=== PATIENT | female | born 1950 | race Caucasian/White ===

== ENCOUNTER 2017-01-06 08:40 | Day surgery (SDC) | payer OTHER, MEDICARE ==
[2017-01-06] MEDS ORDERED: LIDOCAINE 1% 5 ML SDV ID PRN (09:20)
[2017-01-06] MEDS ORDERED: LR 1,000 ML IV ONE (09:20)
[2017-01-06] MEDS ORDERED: PROPOFOL/EMULSION 500 MG/50 ML BOTTLE IV ONE (11:26)
--- NOTE | 2017-01-06 12:33 | GPN ---
PREPROCEDURE DIAGNOSES: Chronic left lower quadrant abdominal pain, history of hematochezia, possib le hemorrhoids. POSTPROCEDURE DIAGNOSES: 1. Minimal antral gastritis. 2. Small internal hemorrhoids. PROCEDURES: Esophagogastroduodenoscopy with biopsy, colonoscopy. MEDICATIONS: Monitored anesthesia care. INDICATIONS: The patient is a 66-year-old female, followed by our clinic for irritable bowel syndro me, fibromyalgia, and chronic right lower quadrant abdominal pain, as well as recent possible sympto matic hemorrhoids with hematochezia. She has been referred for upper endoscopy and colonoscopy. He r last colonoscopy was in 2013, which was normal. The risks and the benefits of the procedure were discussed with the patient, and consent obtained. The risks include, but are not limited to, bleedi ng, perforation, missed lesions, sedation. The patient is ASA class 2. PROCEDURE: The end-viewing endoscope was inserted into the esophagus, into the stomach, down to the second portion of the duodenum. The esophagus appears normal. The Z-line is regular at 40 cm from the incisors. There is no evidence of varices, esophagitis, or Stanley. The stomach shows minimal antral erythema consistent with gastritis. Biopsies were taken with cold biopsy forceps to evaluat e for Helicobacter pylori. The duodenum and second portion were normal. Biopsies were taken for ev aluation of celiac disease with cold biopsy forceps. The patient was then repositioned and the pediatric colonoscope was advanced into the terminal ileum , which appeared normal. The ileocecal valve, cecum, appendiceal orifice, ascending colon, hepatic flexure, transverse colon, splenic flexure, descending colon, sigmoid colon, and rectum appeared nor mal. Retroflexed views in the rectum showed small grade 1 internal hemorrhoids. IMPRESSION.: 1. Minimal antral gastritis. 2. Small grade 1 internal hemorrhoids. RECOMMENDATION: 1. Discharge home with escort. 2. Advance diet as tolerated. 3. Continue current medications. 4. Repeat colonoscopy in 10 years for screening purposes. 5. Follow up in our GI clinic as previously scheduled for further discussion and management of her symptoms. Thank you for allowing me to participate in the care of your patient. Please do not hesitate to brianna l with questions. /[id number]/MODL
== END 2017-01-06 13:45 | disposition home or self-care (01) ==
LOC: FSGY 08:40
PROVIDERS: ATTEND Internal Medicine Gastroenterology
PROC: 0DB98ZX Excision of Duodenum, Via Natural or Artificial Opening Endoscopic, Diagnostic (ICD-10-PCS; principal; 2017-01-06 10:45)
PROC: 0DB78ZX Excision of Stomach, Pylorus, Via Natural or Artificial Opening Endoscopic, Diagnostic (ICD-10-PCS; principal; 2017-01-06 10:45)
DX: K29.50 Unspecified chronic gastritis without bleeding (principal); K64.0 First degree hemorrhoids
CPT/HCPCS: 43239; G0121; J2704

== ENCOUNTER → 2017-02-09 | Outpatient (CLI) | payer OTHER, MEDICARE | LOC: BMCIMAGING 11:17 | PROVIDERS: ATTEND Internal Medicine | DX: M54.9 Dorsalgia, unspecified (principal); R07.81 Pleurodynia ==

== ENCOUNTER → 2017-04-15 | Outpatient (CLI) | payer OTHER, MEDICARE | LOC: FIMAGING 10:17 | DX: Z12.31 Encounter for screening mammogram for malignant neoplasm of breast (principal); Z80.3 Family history of malignant neoplasm of breast | CPT/HCPCS: G0202 ==

== ENCOUNTER 2017-06-09 14:00 | Emergency (ER) | payer OTHER, MEDICARE ==
[2017-06-09 14:45] VITALS: RESP 16; TEMP 98.2
--- NOTE | 2017-06-09 14:51 | CPEKG ---
Heart Rate: 58 RR Interval: 1034 P-R Interval: 160 QRSD Interval: 80 QT Interval: 464 QTC Interval: 456 P [place]: 43 QRS [place]: 34 T Wave [place]: 55 EKG Severity - NORMAL ECG - EKG Impression: SINUS RHYTHM Electronically Signed By: Riaz Lake 09-Jun-2017 20:59:28
[2017-06-09] MEDS ORDERED: fentaNYL 100 MCG/2 ML INJ IVP ONE ×2 (15:26→16:00)
[2017-06-09] MEDS ORDERED: fentaNYL 100 MCG/2 ML INJ ONE (15:28)
--- NOTE | 2017-06-09 15:31 | EDPHY ---
H & P Stated Complaint: BIBA for s/p syncope & fall, neck pain Time Seen by Provider: 06/09/17 15:28 - Personal History Current Tetanus/Diphtheria Vaccine: Yes Current Tetanus Diphtheria and Acellular Pertussis (TDAP): Yes Tetanus Vaccine Date: 2013 - Medical/Surgical History Hx Asthma: Yes Hx Chronic Respiratory Disease: No Hx Diabetes: No Hx Cardiac Disease: No Hx Renal Disease: No Hx Cirrhosis: No Hx Alcoholism: No Hx HIV/AIDS: No Hx Splenectomy or Spleen Trauma: No Other PMH: PMH- HYPOTHYROID, LYME DISEASE, TIA, DVT, carotid artery stenosis w/ repair 09/22. PSH- ortho surgeries, appy, greg, thyroidectomy r/t CA, partial hysterectomy - Social History Smoking Status: Never smoked Constitutional: Initial Vital Signs Temperature (C) 36.8 C 06/09/17 14:05 Heart Rate 55 L 06/09/17 14:05 Respiratory Rate 16 06/09/17 14:05 Blood Pressure 150/78 H 06/09/17 14:05 O2 Sat (%) 100 06/09/17 14:05 O2 Delivery Mode Nasal Cannula O2 (L/minute) 2 Allergies/Adverse Reactions: HAYFEVER Allergy (Mild, Uncoded 12/30/16 11:57) SNEEZE,ITCHY EYES Home Medications: Medication Instructions Recorded Levothyroxine 06/09/17 Midodrine HCl 06/09/17 Medical Decision Making - Diagnostics Imaging Results: Imaging Impressions Cervical Spine CT 06/09/17 15:27 Impression: 1. No acute fracture. 2. 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 3. Moderate disk height loss and degenerative disk disease at C6-C7. 4. Early facet arthropathy at C7-T1. 5. No significant canal or foraminal stenosis evident. 6. Arthritis and ligamentous calcification at the atlantoaxial junction, as well. Findings and recommendations discussed with Riaz Lake M.D., at 1600 hours , on June 09, 2017. Final report concurs with initial preliminary interpretation. Lumbar Spine CT 06/09/17 15:27 Impression: 1. Nothing acute. 2. Postoperative findings from fusion at L3-L5. 3. Moderate degenerative disk disease at L1-L2. Findings and recommendations discussed with Riaz Lake MD at 1600 hour, 06/09/2017. Final report concurs with initial preliminary interpretation. Imaging: Discussed imaging studies w/ call circuit worker Radiologist ED Course/Re-evaluation: CHIEF COMPLAINT: HISTORY OF PRESENT ILLNESS: The patient is a 67 y/o female who complains of [id number] neck pain secondary to a syncopal episode this afternoon. She has a history of an autonomic nervous system disorder that causes recurrent syncopes and prior falls. She is currently using pain medications and muscle relaxants following a recent lumbar fusion surgery. She states she had a bowel movement right before she passed out. Denies weakness, paresthesia, dyspnea, chest pains. No anticoagulants. REVIEW OF SYSTEMS: A 10 point review of systems was performed and is negative with the exception of the elements mentioned in the history of present illness. PHYSICAL EXAM: HR, BP, O2 Sat, RR. Temp noted General Appearance: Alert, well hydrated, appropriate, and non-toxic appearing. Head: Atraumatic without scalp tenderness or obvious injury Eyes: Pupils equal, round, reactive to light and accommodation, EOMI, no trauma , no injection. Ears: Clear bilaterally, no perforation, normal landmarks Nose: Atraumatic, no rhinorrhea, clear. Throat: Mucus membranes moist. Neck: Midline cervical spine tenderness. C-collar in place. Respiratory: No retractions, no distress, no wheezes, and no accessory muscle use. Lungs are clear to auscultation bilaterally. Cardiovascular: Regular rate and rhythm, no murmurs, rubs, or gallops. Good capillary refill all extremities. Gastrointestinal: Abdomen is soft, non-tender, non-distended, no masses, no rebound, no guarding, no peritoneal signs. Musculoskeletal: Normal active ROM of all extremities, atraumatic. Neurological: Alert, appropriate, and interactive. Non-focal neuro. Skin: No rashes, good turgor, no nodules on palpation. PAST MEDICAL HISTORY: TIA, DVT, hypothyroid, carotid artery stenosis PAST SURGICAL HISTORY: Lumbar fusion, carotid endarterectomy SOCIAL HISTORY: Retired, lives in [place] Prior medical records viewed including discharge note on 10/03/14 for TIA. DIAGNOSTICS/PROCEDURES/CRITICAL CARE TIME: CT cervical spine and lumbar spine: Negative per Dr. Mcintosh, radiologist EKG: The 12 lead EKG was interpreted by myself. Sinus rhythm. See hard copy and/ or "tracemaster" electronic copy for interpretation DIFFERENTIAL DIAGNOSIS: The differential diagnosis for the patient's neck and back pain included but was not limited to musculoskeletal pain, epidural abscess , herniated disk, spinal fracture, and intra-abdominal causes including urinary system. MEDICAL DECISION MAKING: The patient is a 67 y/o female who presents with a neck pain secondary to a syncopal episode this afternoon. She has an extensive syncopal history and Dr. Blevins, vault manager, has diagnosed her with an autonomic vasovagal disorder. She had a lumbar fusion surgery several days ago, and was concerned about injuring her back and neck following her syncopal episode. Plan for cervical and lumbar spine CT to rule out fractures or reinjury , EKG, and pain management. 50mcg IV Fentanyl administered. 1610: C-spine cleared by imaging, C-collar removed by myself. Patient remains neurovascularly intact. Reassessed patient and have discussed imaging findings. I did not prescribe any pain medications or muscle relaxers since she still has these prescriptions from her recent lumbar fusion surgery. She is comfortable with this plan. Return precautions were given. - Data Points Medications Given: Discontinued Medications Hydrocodone Bitart/Acetaminophen ([place] 5/325) 2 tab PO EDNOW ONE Stop: 06/09/17 16:48 Last Admin: 06/09/17 16:50 Dose: 2 tab Fentanyl (Sublimaze) 50 mcg IVP EDNOW ONE Stop: 06/09/17 15:27 Last Admin: 06/09/17 15:33 Dose: 50 mcg Fentanyl (Sublimaze) 50 mcg IVP EDNOW ONE Stop: 06/09/17 16:01 Last Admin: 06/09/17 16:04 Dose: 50 mcg Departure - Departure Disposition: Home, Routine, Self-Care Clinical Impression: Vaso vagal episode Cervical strain Qualifiers: Encounter type: initial encounter Qualified Code(s): S16.1XXA - Strain of muscle, fascia and tendon at neck level, initial encounter Condition: Good Instructions: Cervical Strain (ED), Syncope (ED) Additional Instructions: 1. Apply ice to sore areas. 2. Limit combining narcotic pain medication and muscle relaxers, as this can contribute to vasovagal episodes. 3. Follow up with your specialists as needed. 4. Return to the ED for severe pain, shortness of pain, or worsening of condition. Referrals: Patient,NotPresent [Unknown] - As per Instructions Emily Orellana MD [Primary Care Provider] - As per Instructions Report Scribed for: Riaz Lake Report Scribed by: Veronica Eckert Date of Report: 06/09/17 Time of Report: 15:29
[2017-06-09] MEDS ORDERED: HYDROCODONE/APAP 5/325 TAB PO ONE (16:47)
[2017-06-09 17:38] VITALS: BP 155/82; PULSE 63; O2SAT 94
== END 2017-06-09 17:37 | disposition home or self-care (01) ==
LOC: EDUNIT#
DX: S16.1XXA Strain of muscle, fascia and tendon at neck level, initial encounter (principal); R55 Syncope and collapse; J45.909 Unspecified asthma, uncomplicated; W19.XXXA Unspecified fall, initial encounter
CPT/HCPCS: 72125; 72131; 93005; 96374; 96376; 99285; J3010

== ENCOUNTER → 2018-01-11 | Outpatient (CLI) | payer OTHER, MEDICARE ==
[~2018-01-11] MED LIST: IOPAMIDOL (ISOVUE 370) 100 ML BTL IV ONE
== END ==
LOC: FIMAGING 14:35
PROVIDERS: ATTEND Internal Medicine Cardiovascular Disease
DX: I77.1 Stricture of artery (principal); E78.00 Pure hypercholesterolemia, unspecified; I95.9 Hypotension, unspecified; M50.322 Other cervical disc degeneration at C5-C6 level
CPT/HCPCS: 70498; Q9967

== ENCOUNTER → 2018-05-06 | Outpatient (CLI) | payer OTHER, MEDICARE | LOC: BMCIMAGING 08:35 | PROVIDERS: ATTEND Internal Medicine | DX: Z12.31 Encounter for screening mammogram for malignant neoplasm of breast (principal) ==

== ENCOUNTER 2018-08-27 16:24 | Emergency (ER) | payer OTHER, MEDICARE ==
--- NOTE | 2018-08-27 17:20 | CPEKG ---
Test Reason : OPEN Blood Pressure : / mmHG Vent. Rate : 068 BPM Atrial Rate : 068 BPM P-R Int : 165 ms QRS Dur : 082 ms QT Int : 405 ms P-R-T Axes : 047 026 046 degrees QTc Int : 431 ms Sinus rhythm Borderline T abnormalities, anterior leads Confirmed by Simon Mena ([id number]) on 08/27/2018 5:20:04 PM Referred By: Confirmed By:Simon Mena
--- NOTE | 2018-08-27 17:25 | EDPHY ---
H & P Stated Complaint: Chest pressure Time Seen by Provider: 08/27/18 17:17 HPI/ROS: CHIEF COMPLAINT: Chest pain HISTORY OF PRESENT ILLNESS: The patient is a 68-year-old female who comes to the emergency department with chest pain and left arm tingling. She reports that last night she developed the chest pain and some tingling in her arm mostly in the last 3 fingers. The chest pain resolved but she continues to have left arm heaviness and tingling. She was worried about subclavian DVT because she had 1 in the other arm several years ago. She also has a history of TIA and severe cart artery stenosis post carotid endarterectomy. Today she saw Dr. Solorio from Cardiology who felt like this is likely a radiculopathy but recommended she come to the ER for rule out DVT. The patient decided to disregard this advice and went back home to [place]. The cardiology office called her at home and told her she needed to come back to the emergency department. She now presents for evaluation. She denies shortness of breath. She denies recent fevers or illness. No cough. No abdominal pain. No nausea vomiting or diaphoresis. She artery took aspirin today. Severity: Moderate Modifying factors: Improving spontaneously REVIEW OF SYSTEMS: Constitutional: denies: chills, fever, recent illness, recent injury EENTM: denies: blurred vision, double vision, nose congestion Respiratory: denies: cough, shortness of breath Cardiac: See HPI denies: irregular heart rate, lightheadedness, palpitations Gastrointestinal/Abdominal: denies: abdominal pain, diarrhea, nausea, vomiting, blood streaked stools Genitourinary: denies: dysuria, frequency, hematuria, pain Musculoskeletal: denies: joint pain, muscle pain Skin: denies: lesions, rash, jaundice, bruising Neurological: See HPI denies: headache, weakness Hematologic/Lymphatic: denies: blood clots, easy bleeding, easy bruising Immunologic/allergic: denies: HIV/AIDS, transplant 10 systems reviewed and negative except as noted EXAM: GENERAL: Well-appearing, well-nourished and in no acute distress. HEAD: Atraumatic, normocephalic. EYES: Pupils equal round and reactive to light, extraocular movements intact, sclera anicteric, conjunctiva are normal. ENT: TMs normal, nares patent, oropharynx clear without exudates. Moist mucous membranes. NECK: Normal range of motion, supple without lymphadenopathy or JVD. LUNGS: Breath sounds clear to auscultation bilaterally and equal. No wheezes rales or rhonchi. HEART: Regular rate and rhythm without murmurs, rubs or gallops. ABDOMEN: Soft, nontender, normoactive bowel sounds. No guarding, no rebound. No masses appreciated. BACK: No CVA tenderness, no spinal tenderness, step-offs or deformities EXTREMITIES: Normal range of motion, no pitting or edema. No clubbing or cyanosis. NEUROLOGICAL: Cranial nerves II through XII grossly intact. Normal speech, normal gait. 5/5 strength, normal movement in all extremities, normal sensation , normal reflexes PSYCH: Normal mood, normal affect. SKIN: Warm, dry, normal turgor, no visible rashes or lesions. Source: Patient Exam Limitations: No limitations - Personal History Current Tetanus/Diphtheria Vaccine: Yes Tetanus Vaccine Date: 2013 - Medical/Surgical History Hx Asthma: Yes Hx Chronic Respiratory Disease: No Hx Diabetes: No Hx Cardiac Disease: No Hx Renal Disease: No Hx Cirrhosis: No Hx Alcoholism: No Hx HIV/AIDS: No Hx Splenectomy or Spleen Trauma: No Other PMH: PMH- HYPOTHYROID, chronic LYME DISEASE, TIA, right upper extremity DVT,. PSH- ortho surgeries, appy, greg, thyroidectomy r/t CA, partial hysterectomy, carotid endarterectomy - Family History Significant Family History: No pertinent family hx - Social History Smoking Status: Never smoked Alcohol Use: Sober Drug Use: None Constitutional: Initial Vital Signs Temperature (C) 36.8 C 08/27/18 16:31 Heart Rate 73 08/27/18 16:31 Respiratory Rate 18 08/27/18 16:31 Blood Pressure 162/98 H 08/27/18 16:31 O2 Sat (%) 97 08/27/18 16:31 O2 Delivery Mode Room Air Allergies/Adverse Reactions: HAYFEVER Allergy (Mild, Uncoded 08/27/18 16:34) SNEEZE,ITCHY EYES Home Medications: Medication Instructions Recorded Levothyroxine 06/09/17 Midodrine HCl 06/09/17 Crestor 08/27/18 Medical Decision Making - Diagnostics EKG Interpretation: An EKG obtained and was read and documented in trace view. Please see trace view for full reading and report. Sinus rhythm, T-wave abnormalities consistent with previous EKGs. Imaging Results: Imaging Impressions Chest X-Ray 08/27/18 17:24 Impression: Clear lungs. No pneumothorax or acute process. Imaging: Discussed imaging studies w/ train caller Radiologist ED Course/Re-evaluation: We discussed the patient's lab work and imaging which is reassuring. D-dimer and troponin are negative. Her symptoms would present since yesterday evening so I would expect the troponin to be positive. We discussed risks and benefits and engaged in joint decision making. The patient is eager to go home and declines further treatment or repeat testing. We discussed indications for returning. Differential Diagnosis: Partial list of the Differential diagnosis considered include but were not limited to; acute coronary disease, DVT, radiculopathy, muscle strain and although unlikely based on the history and physical exam, I also considered dissection, pneumonia, pneumothorax, trauma. - Data Points Laboratory Results: Laboratory Results 08/27/18 17:23 08/27/18 17:23 08/27/18 08/27/18 08/27/18 18:15 17:23 17:23 WBC RBC Hgb Hct MCV MCH MCHC RDW Plt Count MPV Neut % (Auto) Lymph % (Auto) [place] % (Auto) Eos % (Auto) Baso % (Auto) Nucleat RBC Rel Count Absolute Neuts (auto) Absolute Lymphs (auto) Absolute Monos (auto) Absolute Eos (auto) Absolute Basos (auto) Absolute Nucleated RBC Immature Gran % Immature Gran # D-Dimer 0.45 ug/mLFEU ug/mLFEU (0.00-0.50) Sodium Potassium Chloride Carbon Dioxide Anion Gap BUN Creatinine Estimated GFR Glucose Calcium POC Troponin I 0.01 ng/mL ng/mL (0.00-0.08) Troponin I < 0.012 ng/mL ng/mL (0.000-0.034) Specimen Hemolysis 08/27/18 08/27/18 17:23 17:23 WBC 6.29 10^3/uL 10^3/uL (3.80-9.50) RBC 4.45 10^6/uL 10^6/uL (4.18-5.33) Hgb 12.9 g/dL g/dL (12.6-16.3) Hct 38.4 % % (38.0-47.0) MCV 86.3 fL fL (81.5-99.8) MCH 29.0 pg pg (27.9-34.1) MCHC 33.6 g/dL g/dL (32.4-36.7) RDW 13.4 % % (11.5-15.2) Plt Count 304 10^3/uL 10^3/uL (150-400) MPV 9.9 fL fL (8.7-11.7) Neut % (Auto) 57.5 % % (39.3-74.2) Lymph % (Auto) 25.8 % % (15.0-45.0) [place] % (Auto) 7.6 % % (4.5-13.0) Eos % (Auto) 8.1 % H % (0.6-7.6) Baso % (Auto) 0.8 % % (0.3-1.7) Nucleat RBC Rel Count 0.0 % % (0.0-0.2) Absolute Neuts (auto) 3.62 10^3/uL 10^3/uL (1.70-6.50) Absolute Lymphs (auto) 1.62 10^3/uL 10^3/uL (1.00-3.00) Absolute Monos (auto) 0.48 10^3/uL 10^3/uL (0.30-0.80) Absolute Eos (auto) 0.51 10^3/uL H 10^3/uL (0.03-0.40) Absolute Basos (auto) 0.05 10^3/uL 10^3/uL (0.02-0.10) Absolute Nucleated RBC 0.00 10^3/uL 10^3/uL (0-0.01) Immature Gran % 0.2 % % (0.0-1.1) Immature Gran # 0.01 10^3/uL 10^3/uL (0.00-0.10) D-Dimer Sodium 135 mEq/L mEq/L (135-145) Potassium 5.0 mEq/L mEq/L (3.3-5.0) Chloride 101 mEq/L mEq/L (97-110) Carbon Dioxide 24 mEq/l mEq/l (22-31) Anion Gap 10 mEq/L mEq/L (6-14) BUN 14 mg/dL mg/dL (7-23) Creatinine 0.9 mg/dL mg/dL (0.6-1.0) Estimated GFR > 60 Glucose 94 mg/dL mg/dL (70-100) Calcium 9.4 mg/dL mg/dL (8.5-10.4) POC Troponin I Troponin I Specimen Hemolysis 177 Point of Care Test Results: Chemistry 08/27/18 18:15 POC Troponin I 0.01 ng/mL ng/mL (0.00-0.08) Departure - Departure Disposition: Home, Routine, Self-Care Clinical Impression: Chest pain Qualifiers: Chest pain type: unspecified Qualified Code(s): R07.9 - Chest pain, unspecified Condition: Good Instructions: Chest Pain (ED) Referrals: Emily Orellana MD [Primary Care Provider] - 1-2 days without fail
[2018-08-27 17:37] LABS: PLATELET COUNT 304 10^3/uL (150-400)
[2018-08-27 19:07] VITALS: BP 118/61
== END 2018-08-27 19:06 | disposition home or self-care (01) ==
DX: R07.9 Chest pain, unspecified (principal); E03.9 Hypothyroidism, unspecified; A69.20 Lyme disease, unspecified; Z86.718 Personal history of other venous thrombosis and embolism; Z86.73 Personal history of transient ischemic attack (TIA), and cerebral infarction without residual deficits
CPT/HCPCS: 84484-PO

== ENCOUNTER 2018-12-15 09:48 | Inpatient (IN) | payer OTHER, MEDICARE ==
[2018-12-15] MEDS ORDERED: NS 1,000 ML IV ONE (09:56)
--- NOTE | 2018-12-15 10:00 | EDPHY ---
Addendum entered and electronically signed by Michelle Juares PAC 12/15/18 12:08: Notified by RN that Influenza A positive. Gave Tamiflu. Started NS at 100 cc/ hr. Original Note: H & P Source: Patient, RN/MD, EMS, Old records Exam Limitations: No limitations - Personal History Tetanus Vaccine Date: 2013 - Medical/Surgical History Hx Asthma: Yes Hx Chronic Respiratory Disease: No Hx Diabetes: No Hx Cardiac Disease: No Hx Renal Disease: No Hx Cirrhosis: No Hx Alcoholism: No Hx HIV/AIDS: No Hx Splenectomy or Spleen Trauma: No Other PMH: PMH- HYPOTHYROID, chronic LYME DISEASE, TIA, right upper extremity DVT,. PSH- ortho surgeries, appy, greg, thyroidectomy r/t CA, partial hysterectomy, carotid endarterectomy - Social History Smoking Status: Never smoked Time Seen by Provider: 12/15/18 09:57 HPI/ROS: HPI: This is a 68-year-old female who presents with Chief Complaint: Cough, chest tightness Location: Chest Quality: Cough,tightness Duration: Since approximately 6 days Signs and Symptoms: no shortness of breath at rest, no shortness of breath on exertion, + cough, + chest pain-nonradiating, no palpitations, no lower extremity edema, + wheezing, no orthopnea, no paroxysmal nocturnal dyspnea, no fever, no injury/trauma, no hemoptysis, no carpal pedal spasms Timing: Gradually worsening Severity: Moderate to severe Context: Patient arrives via EMS from [place] with complaints of gradual onset of productive cough accompanied by wheezing and chest tightness and left arm heaviness since last approximately 6 days ago. Patient reports that her symptoms have continued to gradually worsen and "not improved." Patient reports that she is a nonsmoker but takes albuterol inhaler and " another type of inhaler."She reports that she "had a cold and thought it would get better but it just isn't." Reports a cardiac catheterization approximately 10 years ago that was negative per patient. Patient has a history of low blood pressure and takes midodrine as needed. Chest heaviness and tightness increased with coughing and taking a deep breath. Recent long distance travel. Patient did not take any of her medications this morning as she complains of nausea. She denies fever, vomiting, diarrhea, abdominal pain, shortness of breath, lower extremity edema, calf pain. EMS 12 lead noted flipped T-waves in V2 and V3. Did not receive influenza vaccine this year. Modifying Factors: EMS gave albuterol neb with improved aeration and resolution of wheezing Comment: ROS: A comprehensive 10 system review of systems is otherwise negative aside from elements mentioned in the history of present illness. MEDICAL/SURGICAL/SOCIAL HISTORY: Medical history: HYPOTHYROID, chronic LYME DISEASE, TIA, right upper extremity DVT, PSH- ortho surgeries, appy, greg, thyroidectomy r/t CA, partial hysterectomy, carotid endarterectomy Social history: Retired. Never smoked. CONSTITUTIONAL: Nontoxic-appearing elderly white female who is very talkative, able to speak in complete sentences without any difficulty, awake and alert, no obvious distress HEENT: Atraumatic and normocephalic, PERRL, EOMI. Nares patent; no rhinorrhea; no nasal mucosal edema. Tympanic membranes clear. Oropharynx clear, no exudate and moist pink mucosa. Airway patent. No lymphadenopathy. No meningismus. Cardiovascular: Normal S1/S2, regular rate, regular rhythm, without murmur rub or gallop. PULMONARY/CHEST: Symmetrical and nontender. Faint inspiratory wheezing noted bibasilarly and expiratory wheezing noted throughout. Good air movement. No accessory muscle usage. Able to take a deep breath but induces a dry hacking cough. ABDOMEN: Soft, nondistended, nontender, no rebound, no guarding, no peritoneal signs, no masses or organomegaly. No CVAT. EXTREMITIES: 2/2 pulses, strength 5/5, no deformities, no clubbing, no cyanosis or edema. NEUROLOGICAL: no focal neuro deficits. GCS 15. SKIN: Warm and dry, pallor, no erythema. no rash. Good capillary refill. (Mor,Terra) Constitutional: Initial Vital Signs Temperature (C) 36.6 C 12/15/18 09:48 Heart Rate 72 12/15/18 09:48 Respiratory Rate 16 12/15/18 09:48 Blood Pressure 178/94 H 12/15/18 09:48 O2 Sat (%) 95 12/15/18 09:48 O2 Delivery Mode Room Air Allergies/Adverse Reactions: HAYFEVER Allergy (Mild, Uncoded 08/27/18 16:34) SNEEZE,ITCHY EYES Home Medications: Medication Instructions Recorded Levothyroxine [Synthroid 88 mcg 88 mcg PO DAILY06 06/09/17 (*)] Midodrine HCl 5 mg PO DAILY PRN 06/09/17 Rosuvastatin Calcium [Crestor 20mg 20 mg PO DAILY 08/27/18 (*)] Aspirin [Aspirin 81mg (*)] 81 mg PO DAILY 12/15/18 Medical Decision Making - Diagnostics Imaging Results: Imaging Impressions Chest X-Ray 12/15/18 09:56 Impression: No acute findings in the chest. ED Course/Re-evaluation: Vital signs reviewed and show elevated blood pressure upon arrival. IV access, laboratory studies, EKG, respiratory pathogen swab, chest x-ray ordered to evaluate for pneumonia Patient given L normal saline 1015: Notified by [facility] that TROP=0.00 1030: Notified by [facility] that critical lab value of a sodium 119. Urinalysis ordered Labs reviewed and show potassium 3.9, creatinine 0.7 1040: EKG my read/with attending shows normal sinus rhythm with a rate of 59 beats per minute with a QT interval of 491, inverted T-waves V2 V3 noted. No acute EKG ischemic changes. Chest x-ray my read via PAC shows no vipul opacity, effusion. ED decision to consult for admission for hyponatremia. Spoke with [facility] who kindly agrees to admit patient to step-down under Dr. Rich. This patient was seen under the supervision of my secondary supervising physician. I evaluated care for this patient attending. Discussed this patient with Dr. Sanabria. (Michelle Juares) Differential Diagnosis: Chest pain including but not limited to myocardial ischemia, pulmonary embolus, chest wall pain, pleural inflammation and pulmonary infectious causes. (Michelle Juares) Other Provider: PHYSICIAN DOCUMENTATION: The patient was evaluated and managed by the Physician Filenet Developer and myself. I have reviewed the chart and agree with the findings and plan of care as documented. In addition, I examined the patient myself at 1140. History confirmed as recent 3 day URI with decreased oral intake. Physical findings as follows: Dry mucous membranes. Likely hypovolemic hyponatremia, plan for admission with slow IV normal saline hydration. Discussed with family who is present in the room. I am the secondary supervising physician. (Memo Sanabria) - Data Points Laboratory Results: Laboratory Results 12/15/18 09:49 12/15/18 09:49 12/15/18 12/15/18 12/15/18 09:59 09:49 09:49 WBC 2.71 10^3/uL L 10^3/uL (3.80-9.50) RBC 4.72 10^6/uL 10^6/uL (4.18-5.33) Hgb 13.7 g/dL g/dL (12.6-16.3) Hct 39.0 % % (38.0-47.0) MCV 82.6 fL fL (81.5-99.8) MCH 29.0 pg pg (27.9-34.1) MCHC 35.1 g/dL g/dL (32.4-36.7) RDW 11.5 % % (11.5-15.2) Plt Count 309 10^3/uL 10^3/uL (150-400) MPV 9.7 fL fL (8.7-11.7) Neut % (Auto) 65.3 % % (39.3-74.2) Lymph % (Auto) 22.5 % % (15.0-45.0) Geary % (Auto) 11.8 % % (4.5-13.0) Eos % (Auto) 0.0 % L % (0.6-7.6) Baso % (Auto) 0.0 % L % (0.3-1.7) Nucleat RBC Rel Count 0.0 % % (0.0-0.2) Absolute Neuts (auto) 1.77 10^3/uL 10^3/uL (1.70-6.50) Absolute Lymphs (auto) 0.61 10^3/uL L 10^3/uL (1.00-3.00) Absolute Monos (auto) 0.32 10^3/uL 10^3/uL (0.30-0.80) Absolute Eos (auto) 0.00 10^3/uL L 10^3/uL (0.03-0.40) Absolute Basos (auto) 0.00 10^3/uL L 10^3/uL (0.02-0.10) Absolute Nucleated RBC 0.00 10^3/uL 10^3/uL (0-0.01) Immature Gran % 0.4 % % (0.0-1.1) Immature Gran # 0.01 10^3/uL 10^3/uL (0.00-0.10) Sodium 119 mEq/L L* mEq/L (135-145) Potassium 3.9 mEq/L mEq/L (3.5-5.2) Chloride 82 mEq/L L mEq/L (97-110) Carbon Dioxide 23 mEq/l mEq/l (22-31) Anion Gap 14 mEq/L mEq/L (6-14) BUN 10 mg/dL mg/dL (7-23) Creatinine 0.7 mg/dL mg/dL (0.6-1.0) Estimated GFR > 60 Glucose 116 mg/dL H mg/dL (70-100) Calcium 8.7 mg/dL mg/dL (8.5-10.4) Total Bilirubin 0.9 mg/dL mg/dL (0.1-1.4) Conjugated Bilirubin 0.4 mg/dL mg/dL (0.0-0.5) Unconjugated Bilirubin 0.5 mg/dL mg/dL (0.0-1.1) AST 38 IU/L IU/L (14-46) ALT 32 IU/L IU/L (9-52) Alkaline Phosphatase 77 IU/L IU/L (38-126) POC Troponin I 0.00 ng/mL ng/mL (0.00-0.08) Total Protein 7.2 g/dL g/dL (6.3-8.2) Albumin 4.6 g/dL g/dL (3.5-5.0) Microbiology Results: MICROBIOLOGY 12/15/18 10:15 Nasal, Sinus - Swab Respiratory Panel (PCR) - Final Influenza Virus Type A H3 Medications Given: Sodium Chloride (Ns) 1,000 mls @ 100 mls/hr IV CONT AJ Stop: 06/13/19 12:29 Last Admin: 12/15/18 12:21 Dose: 1,000 mls Oseltamivir Phosphate (Tamiflu) 75 mg PO ONCE ONE Stop: 12/16/18 12:08 Last Admin: 12/15/18 12:19 Dose: 75 mg Discontinued Medications Sodium Chloride (Ns) 1,000 mls @ 0 mls/hr IV ONCE ONE; Wide Open PRN Reason: Protocol Stop: 12/15/18 09:57 Last Admin: 12/15/18 10:15 Dose: 1,000 mls Point of Care Test Results: Chemistry 12/15/18 09:59 POC Troponin I 0.00 ng/mL ng/mL (0.00-0.08) Departure - Departure Disposition: [facility] Acute Clinical Impression: Hyponatremia, Influenza Condition: Fair
[2018-12-15 10:04] LABS: PLATELET COUNT 309 10^3/uL (150-400)
--- NOTE | 2018-12-15 10:27 | CPEKG ---
Test Reason : OPEN Blood Pressure : / mmHG Vent. Rate : 059 BPM Atrial Rate : 060 BPM P-R Int : 191 ms QRS Dur : 088 ms QT Int : 494 ms P-R-T Axes : 055 017 052 degrees QTc Int : 490 ms Sinus rhythm Borderline prolonged QT interval Confirmed by Denia Patel ([id number]) on 12/15/2018 10:27:17 AM Referred By: DENIA PATEL Confirmed By:Denia Patel
[2018-12-15] MEDS ORDERED: OSELTAMIVIR PHOSPHATE 75 MG CAP ONE (12:10)
[2018-12-15] MEDS: OSELTAMIVIR PHOSPHATE 75 MG CAP PO ONE ×2 (12:17→12:19)
[2018-12-15] MEDS ORDERED: NS 1,000 ML IV SCH ×2 (12:30→14:00)
--- NOTE | 2018-12-15 12:35 | PDGENHP ---
History and Physical History and Physical: CC: Headaches confusion and weakness generalized HISTORY: This patient has had several days of headaches nausea vomiting diarrhea weakness. She is not sure she was having fevers or not. She started to feel off mentally and her sister noticed that she was confused on the telephone. She is brought into the hospital by ambulance today for ER evaluation. She denies shortness of breath, think she has been coughing, no chest pain, no abdominal pain, no bleeding. No urinary symptoms. No rash or joint pains ROS: A comprehensive 10 system review revealed no other significant findings PAST MEDICAL HISTORY: "Chronic Lyme disease" Hypothyroidism TIA - carotid endarterectomy Right upper extremity DVT Fibromyalgia Hysterectomy Thyroid cancer status post thyroidectomy Cholecystectomy Appendectomy FAMILY MEDICAL HISTORY: Her sister who is here with her is also recently had a cold-like illness though they have not been in contact during that time Her mother had a stroke SOCIAL HISTORY: No history of tobacco Lives in [place] No alcohol MEDICATIONS: The patients list has been reconciled by our clinical pharmacist in the EMR. I have reviewed the list and ordered appropriate medicines. 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: Sinus Examination: General: alert, oriented, gets mildly confused at times during conversation; looks very tired, no tremor Skin: warm, dry, good color, no rash HEENT: normal including absence of pharyngitis Neck: no mass or jvd Resps: relaxed Lungs: clear breath sounds Heart: regular, no murmur Abdomen: soft, nondistended, nontender, +BS, no mass Upper Extremities: normal Lower Extremities: no edema, warm No Bleeding or bruising Neurologic: normal speech/language, normal exhibit cleaner, no focal weakness IV site: looks normal LABORATORY DATA: Sodium 119 Otherwise unremarkable chemistry panel and CBC RADIOLOGY STUDIES: I reviewed image sirs from chest x-ray done in the ER which is a normal two view x-ray 12 LEAD EKG: I reviewed 12 lead EKG tracing from ER which is a normal EKG ASSESSMENT: * Hyponatremia, presumed hypovolemic due to influenza, urine sodium pending * Acute influenza a infection * Acute metabolic encephalopathy due to the above * History of TIA and carotid endarterectomy * Chronic hypothyroidism on replacement * History of DVT right arm PLANS: * Inpatient admission for management and monitoring of serum sodium with risk of osmotic demyelination * Initial treatment for sodium will be with saline replacement, but urine sodium will be checked and modifications made to treatment as indicated by that result and her clinical course * Tamiflu twice daily * fall risk precautions * Avoid sedating medicines, standard measures for encephalopathy * DVT prophylaxis I have reviewed the patient's case in detail with Dr. Memo Sanabria I have reviewed the patient's past medical records as part of this assessment, including previous hospital admission records
[2018-12-15] MEDS ORDERED: MIDODRINE HCL 5 MG TAB PO PRN (13:50)
[2018-12-15] MEDS ORDERED: guaiFENesin/CODEINE PHOS 10 ML UDCUP PO PRN (18:11)
[2018-12-15] MEDS: NS 1,000 ML IV SCH (18:12)
[2018-12-15] MEDS: OSELTAMIVIR PHOSPHATE 75 MG CAP PO SCH (18:13)
--- NOTE | 2018-12-15 18:48 | PDMN ---
Medical Necessity Medical necessity: MCG MGSIC Systemic or Infectious Condition: 68 yo w/ c/o several days of H/A, N/V, diarrhea and weakness w/ new onset confusion. Eval reveals + influenza w/ severe hyponatremia Na119. Inpatient admission for management and monitoring of serum sodium with risk of osmotic demyelination. Meets IP criteria for severe electrolyte imbalance and AMS. Hx Lyme's, TIA s/p CEA, DVT, fibromyalgia, thyroid ca s/p thyroidectomy
[2018-12-15] MEDS: MELATONIN 3 MG TAB PO SCH (20:34)
[2018-12-16] MEDS: LEVOTHYROXINE 88 MCG TAB PO SCH (06:02)
[2018-12-16] MEDS: ASPIRIN 81 MG CHEWABLE TAB PO SCH (08:31)
[2018-12-16] MEDS: ROSUVASTATIN CALCIUM 20 MG TAB PO SCH (08:31)
[2018-12-16] MEDS: OSELTAMIVIR PHOSPHATE 75 MG CAP PO SCH ×2 (08:31→17:58)
[2018-12-16] MEDS: ENOXAPARIN 40 MG/0.4 ML SYR SC SCH (08:31)
--- NOTE | 2018-12-16 09:05 | HOSPPROG ---
Hospitalist Progress Note Assessment/Plan: DIAGNOSES: * Hyponatremia, presumed hypovolemic due to influenza, urine sodium pending * Acute influenza a infection * Acute metabolic encephalopathy due to the above * History of TIA and carotid endarterectomy * Chronic hypothyroidism on replacement * History of DVT right arm PLANS: * Continue gentle saline IV hydration, liberal sodium diet with oral fluid restriction * Continue to follow sodium closely to ensure appropriate rate of rise * Continue measures for encephalopathy otherwise * PT and OT * Can transfer to [facility] at this time * Requires ongoing hospital care for acute confusion due to her encephalopathy as well as monitoring her sodium correction SUBJECTIVE: Feels much better today, much more comfortable, eating better Still has occasional visual hallucination Her sister notes she is still is fairly delusional in conversation at times though seems somewhat better oriented than yesterday OBJECTIVE Vitals reviewed: All stable without fever 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, my review: All sinus Exam: alert oriented at present during my conversation, no focal neurologic changes Looks more comfortable than yesterday skin warm dry color ok resps not labored lungs clear BSs heart regular abd soft nondistended nontender, bowel sounds present limbs warm, no edema iv site ok Laboratory data: Sodium is now 127 Microbiology: Influenza type A H3 Objective: Vital Signs Temp Pulse Resp BP Pulse Ox 36.9 C 56 L 17 136/69 H 96 12/16/18 07:47 12/16/18 07:47 12/16/18 07:47 12/16/18 07:47 12/16/18 07:47 Laboratory Results 12/16/18 05:50 12/15/18 12/16/18 12/17/18 06:59 06:59 06:59 Intake Total 2197 Output Total 700 Balance 1497 ICD10 Worksheet Patient Problems: Problems Problem Status Onset Hyponatremia Acute Influenza Acute TIA (transient ischemic attack) Acute
[2018-12-16] MEDS: POLYETHYLENE GLYCOL 3350 17 GM PKT PO SCH ×2 (09:12→20:49)
[2018-12-16] MEDS: ONDANSETRON 4 MG/2 ML VIAL IVP PRN ×2 (11:05→18:11)
[2018-12-16] MEDS: NS 1,000 ML IV SCH (13:10)
--- NOTE | 2018-12-16 13:56 | ASMTCASEMG ---
Living Arrangements What is your living Answers: Alone arrangement? Who do you live with? Type Of Residence What kind of residence do Answers: House you live in? Discharge Plan Comments Coordination Status Comments Notes: Patient is a 68yo single female who is being admitted for hyponatremia, acute influenza infection, metabolic encephalopathy, hx of TIA, and chronic hypothyroidism. Patient does live in [place] and lists a brother, Herbert who is local. PT has been ordered. D/C plan TBD. CM will follow. Date Signed: 12/16/2018 01:55 PM Electronically Signed By:Peyton Alvarado LCSW
[2018-12-16] MEDS: SODIUM CHLORIDE 1,000 MG TAB PO SCH (17:58)
[2018-12-16] MEDS ORDERED: hydrALAZINE 20 MG/ML VIAL IVP ONE (20:30)
[2018-12-16] MEDS: MELATONIN 3 MG TAB PO SCH (22:17)
[2018-12-17] MEDS ORDERED: hydrALAZINE 20 MG/ML VIAL IVP ONE (05:00)
[2018-12-17] MEDS: LEVOTHYROXINE 88 MCG TAB PO SCH (05:12)
[2018-12-17] MEDS ORDERED: FUROSEMIDE 20 MG/2 ML VIAL IVP ONE (08:59)
[2018-12-17] MEDS ORDERED: hydrALAZINE 20 MG/ML VIAL IVP PRN (09:01)
[2018-12-17] MEDS: ONDANSETRON 4 MG/2 ML VIAL IVP PRN (09:23)
[2018-12-17] MEDS: ASPIRIN 81 MG CHEWABLE TAB PO SCH (09:25)
[2018-12-17] MEDS: SODIUM CHLORIDE 1,000 MG TAB PO SCH ×2 (09:25→17:19)
--- NOTE | 2018-12-17 09:25 | HOSPPROG ---
Hospitalist Progress Note Assessment/Plan: * SIADH -urine sodium > 140 -likely due to pulmonary infection (influenza) -DC IV NS, give IV Lasix x 1 -fluid restrict + salt tabs -check TSH and cortisol levels in am * Chronic hypotension due to autonomic insufficiency -takes midodrine at home prn -BP very high here - symptomatic - s/p IV hydralazine (for SBP 188) -will not start oral BP med now due to h/o low BP -hopefully will settle down once sodium levels improve * Influenza -Tamiflu * Metabolic encephalopathy due to hyponatremia -improved * h/o TIA s/p carotid endarterectomy -ASA/statin * Fibromyalgia/Chronic Lyme disease -sees customer service representative teacher as outpatient * Thyroid Ca s/p thyroidectomy -check TSH am Subjective: Feels better, very stressed about recommendation for fluid restriction because she was previously told to push PO fluid due to low BP history. BP will fall to SBP 60s freqently with dizziness. Previous outpatient w/u for [facility] was negative Objective: Vital Signs Temp Pulse Resp BP Pulse Ox 36.3 C 65 16 146/72 H 96 12/17/18 07:27 12/17/18 07:27 12/17/18 07:27 12/17/18 07:27 12/17/18 07:27 Laboratory Results 12/17/18 05:07 12/16/18 12/17/18 12/18/18 05:59 05:59 05:59 Intake Total 2197 1360 Output Total 700 600 Balance 1497 760 - Time Spent With Patient Time Spent with Patient: greater than 35 minutes Time Spent with Patient: Greater than 35 minutes spent on this patients care, greater than 50% of time spent counseling, educating, and coordinating care regarding the above mentioned plan. - Physical Exam Constitutional: no apparent distress, appears nourished, not in pain Cardiovascular: regular rate and rhythym, no murmur, rub, or gallop Respiratory: no respiratory distress, no rales or rhonchi, clear to auscultation Gastrointestinal: normoactive bowel sounds, soft, non-tender abdomen, no palpable masses Skin: no rashes or abrasions, no fluctuance, no induration Neurologic: AAOx3, sensation intact bilaterally Psychiatric: interacting appropriately, not anxious, not encephalopathic, thought process linear ICD10 Worksheet Patient Problems: Problems Problem Status Onset TIA (transient ischemic attack) Acute Hyponatremia Acute Influenza Acute
[2018-12-17] MEDS: OSELTAMIVIR PHOSPHATE 75 MG CAP PO SCH ×2 (09:26→17:19)
[2018-12-17] MEDS: ROSUVASTATIN CALCIUM 20 MG TAB PO SCH (09:26)
[2018-12-17] MEDS: ENOXAPARIN 40 MG/0.4 ML SYR SC SCH (09:27)
[2018-12-17] MEDS: POLYETHYLENE GLYCOL 3350 17 GM PKT PO SCH ×2 (09:32→20:53)
[2018-12-17] MEDS: MELATONIN 3 MG TAB PO SCH (20:53)
[2018-12-18] MEDS: ONDANSETRON 4 MG/2 ML VIAL IVP PRN ×2 (05:16→17:24)
[2018-12-18] MEDS ORDERED: COSYNTROPIN 0.25 MG/2 ML SYRINGE IVP ONE (06:00)
[2018-12-18] MEDS: LEVOTHYROXINE 88 MCG TAB PO SCH (07:44)
[2018-12-18] MEDS: OSELTAMIVIR PHOSPHATE 75 MG CAP PO SCH ×2 (08:55→18:15)
[2018-12-18] MEDS: ASPIRIN 81 MG CHEWABLE TAB PO SCH (08:55)
[2018-12-18] MEDS: SODIUM CHLORIDE 1,000 MG TAB PO SCH ×2 (08:55→18:15)
[2018-12-18] MEDS: ROSUVASTATIN CALCIUM 20 MG TAB PO SCH (08:55)
[2018-12-18] MEDS: ENOXAPARIN 40 MG/0.4 ML SYR SC SCH (08:56)
[2018-12-18] MEDS: POLYETHYLENE GLYCOL 3350 17 GM PKT PO SCH ×2 (08:56→20:44)
[2018-12-18] MEDS: guaiFENesin 600 MG TAB.ER PO SCH ×2 (11:00→20:41)
--- NOTE | 2018-12-18 16:53 | HOSPPROG ---
Hospitalist Progress Note Assessment/Plan: * SIADH -urine sodium > 140 -likely due to pulmonary infection (influenza) -fluid restrict + salt tabs * Chronic hypotension due to autonomic insufficiency -takes midodrine at home prn -BP very high here - symptomatic - s/p IV hydralazine (for SBP 188) -will not start oral BP med now due to h/o low BP -hopefully will settle down once sodium levels improve * Influenza -Tamiflu * Metabolic encephalopathy due to hyponatremia -improved * h/o TIA s/p carotid endarterectomy -ASA/statin * Fibromyalgia/Chronic Lyme disease -sees type caster as outpatient * Thyroid Ca s/p thyroidectomy -TSH too high - increase Synthroid * Intermittent SBO - scar tissue from distant appy -patient denies current N/V c/w SBO -consider abd Xray if persists Subjective: Vomiting all morning - she attributes it to increased mucus, denies c/w SBO Objective: Vital Signs Temp Pulse Resp BP Pulse Ox 36.9 C 63 14 147/79 H 97 12/18/18 15:15 12/18/18 15:15 12/18/18 15:15 12/18/18 15:15 12/18/18 15:15 Laboratory Results 12/18/18 05:10 12/17/18 12/18/18 12/19/18 05:59 05:59 05:59 Intake Total 1360 1130 Output Total 600 Balance 760 1130 - Physical Exam Constitutional: no apparent distress, appears nourished, not in pain Cardiovascular: regular rate and rhythym, no murmur, rub, or gallop Respiratory: no respiratory distress, no rales or rhonchi, clear to auscultation Gastrointestinal: normoactive bowel sounds, soft, non-tender abdomen, no palpable masses Skin: no rashes or abrasions, no fluctuance, no induration Neurologic: AAOx3, sensation intact bilaterally Psychiatric: interacting appropriately, not anxious, not encephalopathic, thought process linear ICD10 Worksheet Patient Problems: Problems Problem Status Onset TIA (transient ischemic attack) Acute Hyponatremia Acute Influenza Acute
[2018-12-18] MEDS: MELATONIN 3 MG TAB PO SCH (20:41)
[2018-12-19] MEDS: LEVOTHYROXINE 112 MCG TAB PO SCH (06:19)
[2018-12-19] MEDS: ENOXAPARIN 40 MG/0.4 ML SYR SC SCH (07:53)
[2018-12-19] MEDS: SODIUM CHLORIDE 1,000 MG TAB PO SCH ×2 (07:55→18:49)
[2018-12-19] MEDS: ASPIRIN 81 MG CHEWABLE TAB PO SCH (07:55)
[2018-12-19] MEDS: ROSUVASTATIN CALCIUM 20 MG TAB PO SCH (07:55)
[2018-12-19] MEDS: ONDANSETRON 4 MG/2 ML VIAL IVP PRN (08:20)
[2018-12-19] MEDS: POLYETHYLENE GLYCOL 3350 17 GM PKT PO SCH ×2 (09:25→22:32)
[2018-12-19] MEDS: guaiFENesin 600 MG TAB.ER PO SCH (09:25)
[2018-12-19] MEDS: OSELTAMIVIR PHOSPHATE 75 MG CAP PO SCH (09:25)
--- NOTE | 2018-12-19 15:59 | HOSPPROG ---
Hospitalist Progress Note Assessment/Plan: * SIADH -urine sodium > 140 -likely due to pulmonary infection (influenza) -fluid restrict + salt tabs * Chronic hypotension due to autonomic insufficiency -takes midodrine at home prn -BP very high here - symptomatic - s/p IV hydralazine (for SBP 188) -will not start oral BP med now due to h/o low BP -hopefully will settle down once sodium levels improve * Influenza -severe GI side effects due to Tamiflu - will DC * Metabolic encephalopathy due to hyponatremia -improved * h/o TIA s/p carotid endarterectomy -ASA/statin * Fibromyalgia/Chronic Lyme disease -sees conventional mortgage underwriter as outpatient * Thyroid Ca s/p thyroidectomy -TSH too high - increase Synthroid * Intermittent SBO - scar tissue from distant appy -Abd Xray negative for obstruction * N/V - ? side effect of Tamiflu? -DC Tamiflu and monitor Subjective: N/V severe in last 24 hours Objective: Vital Signs Temp Pulse Resp BP Pulse Ox 36.9 C 64 16 159/89 H 93 12/19/18 12:00 12/19/18 12:00 12/19/18 04:00 12/19/18 12:00 12/19/18 12:00 Laboratory Results 12/19/18 05:30 12/18/18 12/19/18 12/20/18 05:59 05:59 05:59 Intake Total 1130 800 Output Total 400 Balance 1130 400 - Physical Exam Constitutional: no apparent distress, appears nourished, not in pain Cardiovascular: regular rate and rhythym, no murmur, rub, or gallop Respiratory: no respiratory distress, no rales or rhonchi, clear to auscultation Gastrointestinal: normoactive bowel sounds, soft, non-tender abdomen, no palpable masses Skin: no rashes or abrasions, no fluctuance, no induration Neurologic: AAOx3, sensation intact bilaterally Psychiatric: interacting appropriately, not anxious, not encephalopathic, thought process linear ICD10 Worksheet Patient Problems: Problems Problem Status Onset TIA (transient ischemic attack) Acute Hyponatremia Acute Influenza Acute
--- NOTE | 2018-12-19 17:17 | ASMTCMCOM ---
CM Note CM Note Notes: CM discussed with JOHN Dyer, patient experiencing diarrhea and vomiting. Patient likely to discharge home independent when medically stable. CM to follow. D/C Plan: Home independent. Date Signed: 12/19/2018 05:16 PM Electronically Signed By:Geeta Silvestre
[2018-12-20] MEDS: LEVOTHYROXINE 112 MCG TAB PO SCH (04:44)
[2018-12-20 05:15] LABS: PLATELET COUNT 309 10^3/uL (150-400)
[2018-12-20] MEDS: ROSUVASTATIN CALCIUM 20 MG TAB PO SCH (08:42)
[2018-12-20] MEDS: SODIUM CHLORIDE 1,000 MG TAB PO SCH ×3 (08:42→21:03)
[2018-12-20] MEDS: ASPIRIN 81 MG CHEWABLE TAB PO SCH (08:42)
[2018-12-20] MEDS: POLYETHYLENE GLYCOL 3350 17 GM PKT PO SCH ×2 (08:45→21:04)
--- NOTE | 2018-12-20 16:59 | HOSPPROG ---
Hospitalist Progress Note Assessment/Plan: * SIADH -urine sodium > 140 -likely due to pulmonary infection (influenza) -fluid restrict + salt tabs * Chronic hypotension due to autonomic insufficiency -takes midodrine at home prn -BP very high here - symptomatic - s/p IV hydralazine (for SBP 188) -will not start oral BP med now due to h/o low BP -hopefully will settle down once sodium levels improve * Influenza -doing okay off Tamiflu * Metabolic encephalopathy due to hyponatremia -improved * h/o TIA s/p carotid endarterectomy -ASA/statin * Fibromyalgia/Chronic Lyme disease -sees bus assistant as outpatient * Thyroid Ca s/p thyroidectomy -TSH too high - increase Synthroid * Intermittent SBO - scar tissue from distant appy -Abd Xray negative for obstruction * Gastroenteritis due to Norovirus -diarrhea better but still not taking PO Subjective: Nausea, drinking little bits of gatorade only Objective: Vital Signs Temp Pulse Resp BP Pulse Ox 36.8 C 63 16 153/85 H 93 12/20/18 15:23 12/20/18 15:23 12/20/18 15:23 12/20/18 15:23 12/20/18 15:23 Microbiology 12/19/18 15:50 Gastrointestinal Tract Panel (PCR) - Final Stool Norovirus Gi/Gii Laboratory Results 12/20/18 04:30 12/20/18 04:30 12/19/18 12/20/18 12/21/18 05:59 05:59 05:59 Intake Total 800 750 Output Total 400 100 900 Balance 400 650 -900 - Physical Exam Constitutional: no apparent distress, appears nourished, not in pain Cardiovascular: regular rate and rhythym, no murmur, rub, or gallop Respiratory: no respiratory distress, no rales or rhonchi, clear to auscultation Gastrointestinal: normoactive bowel sounds, soft, non-tender abdomen, no palpable masses Skin: no rashes or abrasions, no fluctuance, no induration Neurologic: AAOx3, sensation intact bilaterally Psychiatric: interacting appropriately, not anxious, not encephalopathic, thought process linear ICD10 Worksheet Patient Problems: Problems Problem Status Onset TIA (transient ischemic attack) Acute Hyponatremia Acute Influenza Acute
[2018-12-21] MEDS: LEVOTHYROXINE 112 MCG TAB PO SCH (06:39)
[2018-12-21] MEDS: ASPIRIN 81 MG CHEWABLE TAB PO SCH (09:38)
[2018-12-21] MEDS: ROSUVASTATIN CALCIUM 20 MG TAB PO SCH (09:39)
[2018-12-21] MEDS: POLYETHYLENE GLYCOL 3350 17 GM PKT PO SCH ×2 (09:57→20:36)
[2018-12-21] MEDS: SODIUM CHLORIDE 1,000 MG TAB PO SCH ×2 (15:22→18:39)
--- NOTE | 2018-12-21 16:49 | ASMTCMCOM ---
CM Note CM Note Notes: Spoke with PT who thinks patient might need home health care. The patient is planning on going home with her sister initially. CM will follow. Date Signed: 12/21/2018 04:48 PM Electronically Signed By:Peyton Alvarado LCSW
--- NOTE | 2018-12-21 17:29 | HOSPPROG ---
Hospitalist Progress Note Assessment/Plan: * SIADH -urine sodium > 140 -likely due to pulmonary infection (influenza) -fluid restrict + salt tabs * Gastroenteritis due to Norovirus -still severe nausea taking minimal PO * Chronic hypotension due to autonomic insufficiency -takes midodrine at home prn -BP very high here - symptomatic - s/p IV hydralazine (for SBP 188) -will not start oral BP med now due to h/o low BP -hopefully will settle down once sodium levels improve * Influenza -doing okay off Tamiflu - worsening nausea * Metabolic encephalopathy due to hyponatremia -improved * h/o TIA s/p carotid endarterectomy -ASA/statin * Fibromyalgia/Chronic Lyme disease -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 * Thyroid Ca s/p thyroidectomy -TSH too high - increase Synthroid * Intermittent SBO - scar tissue from distant appy -Abd Xray negative for obstruction Subjective: Taking a few saltines only, tolerating liquids Objective: Vital Signs Temp Pulse Resp BP Pulse Ox 37.1 C 73 16 93/61 L 96 12/21/18 15:52 12/21/18 15:52 12/21/18 15:52 12/21/18 15:52 12/21/18 15:52 Laboratory Results 12/20/18 04:30 12/21/18 05:15 12/20/18 12/21/18 12/22/18 05:59 05:59 05:59 Intake Total 750 1250 Output Total 100 1650 300 Balance 650 -400 -300 - Physical Exam Constitutional: no apparent distress, appears nourished, not in pain Cardiovascular: regular rate and rhythym, no murmur, rub, or gallop Respiratory: no respiratory distress, no rales or rhonchi, clear to auscultation Gastrointestinal: normoactive bowel sounds, soft, non-tender abdomen, no palpable masses Skin: no rashes or abrasions, no fluctuance, no induration Neurologic: AAOx3, sensation intact bilaterally Psychiatric: interacting appropriately, not anxious, not encephalopathic, thought process linear ICD10 Worksheet Patient Problems: Problems Problem Status Onset TIA (transient ischemic attack) Acute Hyponatremia Acute Influenza Acute
[2018-12-22] MEDS: LEVOTHYROXINE 112 MCG TAB PO SCH (05:19)
[2018-12-22] MEDS: ASPIRIN 81 MG CHEWABLE TAB PO SCH (10:35)
[2018-12-22] MEDS: ROSUVASTATIN CALCIUM 20 MG TAB PO SCH (10:35)
[2018-12-22] MEDS: POLYETHYLENE GLYCOL 3350 17 GM PKT PO SCH (10:36)
[2018-12-22] MEDS: SODIUM CHLORIDE 1,000 MG TAB PO SCH (10:38)
--- NOTE | 2018-12-22 10:59 | ASMTCMCOM ---
CM Note CM Note Notes: Pt offered HHC but declined. Will discharge home with Sister who will stay with her and if she needs help longer than two day she will go to her [facility] in [place]. Pt understands she can call her PCP if HHC is needed. Date Signed: 12/22/2018 10:58 AM Electronically Signed By:Leatha Martinez RN
--- NOTE | 2018-12-22 10:59 | GDS ---
[f rep st] DISCHARGE SUMMARY DISCHARGE SUMMARY ADMITTED: 12/15/18-12/22/18 DIAGNOSES: 1. Severe hyponatremia likely due to syndrome of inappropriate secretion of antidiuretic hormone, which is significantly improved. 2. Gastroenteritis due to norovirus. 3. Chronic hypotension, autonomic insufficiency. 4. Influenza. 5. Metabolic encephalopathy. 6. A history of a transient ischemic attack status post carotid endarterectomy. 7. Fibromyalgia. 8. Chronic lung disease. 9. Thyroid cancer status post thyroidectomy. 10. Intermittent small bowel obstruction. HOSPITAL COURSE: This is a 68-year-old female who presented with confusion and general weakness. She was found to have a sodium of 119. This was corrected appropriately. Her urine sodium was elevated at 140, which makes this most consistent with SIADH. She was placed on fluid restriction as well as salt tablets. Sodium, on the day of discharge, is 133. She had significant gastroenteritis. A GI PCR showed this to be due to norovirus. With conservative measures, she has improved significantly. She was also found to have influenza. she received a few days of Tamiflu; however, this was stopped when she was found to have a gastroenteritis. She is markedly improved. Her encephalopathy is also markedly improved. This was due to her low sodium. She is at her baseline, alert and oriented. On the day of discharge, she ate a full meal. She has ambulated throughout the entire halls with Physical Therapy. She feels ready to be discharged home. She feels as though she can keep herself hydrated. FOLLOWUP: 1. Dr. Lawrence to have her basic metabolic panel rechecked within 1 week. 2. TSH in 6 weeks. MEDICATION CHANGES: Increase her levothyroxine from 88 mcg daily to 100 given a TSH of 10. She is given a prescription for this. BILLING: I spent more than 30 minutes, on the day of discharge, coordinating care. /[id number]/MODL MTDD
--- NOTE | 2018-12-22 11:00 | ASMTLACE ---
LACE Length of stay for Answers: 7-13 days current admission Acuity / Level of Answers: Yes Care: Did the patient have an inpatient admission? Comorbidities - select Answers: Cerebrovascular disease all that apply (CVA, TIA, aneurysms, vasc ular dementia) Other Notes: Hypothyroid; DVT # of Emergency department Answers: 1-2 visits in the last 6 months Score: 11 Date Signed: 12/22/2018 11:00 AM Electronically Signed By:Leatha Martinez RN
[2018-12-22 11:58] VITALS: BP 149/93
== END 2018-12-22 12:34 | disposition home or self-care (01) | DRG 643 ==
LOC: EDUNIT# → F2N 15:11 → F3E 12-16 12:12
PROVIDERS: ADMIT Internal Medicine; ATTEND Internal Medicine
DX: E22.2 Syndrome of inappropriate secretion of antidiuretic hormone (principal); G93.41 Metabolic encephalopathy; A08.39 Other viral enteritis; K56.609 Unspecified intestinal obstruction, unspecified as to partial versus complete obstruction; I95.89 Other hypotension; J11.1 Influenza due to unidentified influenza virus with other respiratory manifestations; E86.9 Volume depletion, unspecified; M79.7 Fibromyalgia; E89.0 Postprocedural hypothyroidism; Z85.850 Personal history of malignant neoplasm of thyroid; Z86.73 Personal history of transient ischemic attack (TIA), and cerebral infarction without residual deficits; Z86.718 Personal history of other venous thrombosis and embolism
CPT/HCPCS: 84484-ER; 97116-GP; 97161-GP; 97165-GO; J0360; J0834; J1650; J1940; J2405

== ENCOUNTER → 2019-01-05 | Outpatient (CLI) | payer OTHER, MEDICARE | LOC: BMCIMAGING 11:35 | PROVIDERS: ATTEND Internal Medicine | DX: J98.09 Other diseases of bronchus, not elsewhere classified (principal) ==

== ENCOUNTER → 2019-02-16 | Outpatient (CLI) | payer OTHER, MEDICARE | LOC: FIMAGING 10:45 | PROVIDERS: ATTEND Internal Medicine Cardiovascular Disease | DX: I70.8 Atherosclerosis of other arteries (principal); R06.09 Other forms of dyspnea | CPT/HCPCS: 71275; 73206; Q9967 ==

== ENCOUNTER → 2019-03-02 | Outpatient (CLI) | payer OTHER, MEDICARE | LOC: BHFA 10:00 | PROVIDERS: ATTEND Internal Medicine Cardiovascular Disease | DX: I25.10 Atherosclerotic heart disease of native coronary artery without angina pectoris (principal); R09.02 Hypoxemia; I77.9 Disorder of arteries and arterioles, unspecified ==

== ENCOUNTER → 2019-05-06 | Outpatient (CLI) | payer OTHER, MEDICARE | LOC: BMCIMAGING 09:01 ==